=== PATIENT | female | born 1980 | race Caucasian/White ===

== ENCOUNTER 2019-01-21 08:47 | Inpatient (IN) | payer OTHER, MEDICAID ==
[~2019-01-21] VITALS: Ht 172.7 cm; Wt 61.7 kg
[2019-01-21 09:22] LABS: BASOPHILS % (AUTO) 0.7 % (0.0-2.0); EOSINOPHILS % (AUTO) 0.8 % (1.0-6.0); HEMATOCRIT 39.3 % (36-46); HEMOGLOBIN 13.2 g/dL (12.0-16.0); LYMPHOCYTES # (AUTO) 1.8 K/uL (1.0-4.8); LYMPHOCYTES % (AUTO) 25.5 % (22.0-44.0); MEAN CORPUSCULAR HEMOGLOBIN 29.2 pg (26.0-34.0); MEAN CORPUSCULAR HGB CONC 33.7 G/dL (31.0-37.0); MEAN CORPUSCULAR VOLUME 87 fL (80-100); MONOCYTES # (AUTO) 0.7 K/uL (0.1-1.0); MONOCYTES % (AUTO) 9.2 % (2.0-9.0); NEUTROPHILS # (AUTO) 4.6 K/uL (1.8-7.7); NEUTROPHILS % (AUTO) 63.8 % (40.0-70.0); PLATELET COUNT (AUTO) 234 K/uL (150-450); RED BLOOD CELL COUNT(AUTO) 4.54 MIL/uL (4.00-5.20); RED CELL DISTRIBUTION WIDTH 13.5 % (11.5-14.5)
[2019-01-21] MEDS ORDERED: DICY20 PO (09:23)
[2019-01-21] MEDS ORDERED: TOLT2TAB2 PO (09:23)
[2019-01-21] MEDS ORDERED: OXYB5 PO (09:23)
[2019-01-21] MEDS ORDERED: OMEP20 PO (09:23)
[2019-01-21] MEDS ORDERED: GABA-533 PO (09:23)
[2019-01-21] MEDS ORDERED: BACL10TA PO (09:23)
[2019-01-21] MEDS ORDERED: DIVA-78 PO (09:23)
[2019-01-21] MEDS ORDERED: MOME13HF2 IH (09:23)
[2019-01-21] MEDS ORDERED: ALBU8HFA IH (09:23)
[2019-01-21] MEDS ORDERED: LEVE250T55 PO (09:23)
[2019-01-21 09:38] LABS: ANION GAP 9 mmol/L (8-16); CALCIUM, TOTAL 8.9 mg/dL (8.8-10.5); CARBON DIOXIDE 28 mmol/L (22-29); CHLORIDE 105 mmol/L (98-107); CREATININE 0.63 mg/dL (0.60-1.30); GLOMERULAR FILTR. RATE CALC > 60 mL/min (>60); GLUCOSE,RANDOM 85 mg/dL (70-110); POTASSIUM 3.4 mmol/L (3.5-5.1); SODIUM SERUM 142 mmol/L (136-145); UREA NITROGEN, BLOOD 14 mg/dL (7-18)
[2019-01-21 09:50] LABS: ALANINE AMINOTRANSFERASE 131 U/L (12-78); ALBUMIN 3.3 g/dL (3.4-5.0); ALKALINE PHOSPHATASE 49 U/L (46-116); ASPARTATE AMINOTRANSFERASE 517 U/L (15-37); HCG,QUANTITATIVE < 1 mIU/mL (0-6); TOTAL PROTEIN, SERUM 6.6 g/dL (6.4-8.2)
[2019-01-21 10:25] LABS: VALPROIC ACID 36 mcg/mL (50-100)
[2019-01-21] MEDS ORDERED: QUEtiapine FUMARATE 100 MG TABLET PO ONE (11:00)
[2019-01-21] MEDS ORDERED: POTASSIUM CHLORIDE 20 MEQ ER TABLET PO ONE (11:15)
[2019-01-21] MEDS ORDERED: ZOLPIDEM TARTRATE 10 MG TABLET PO PRN (11:15)
[2019-01-21 13:24] LABS: AMPHET/METH SCREEN,URINE POSITIVE (NEGATIVE); BARBITURATE SCREEN, URINE NEGATIVE (NEGATIVE); BENZODIAZEPINES SCREEN,URINE NEGATIVE (NEGATIVE); CANNABINOID SCREEN,URINE POSITIVE (NEGATIVE); COCAINE SCREEN,URINE NEGATIVE (NEGATIVE); METHADONE SCREEN, URINE NEGATIVE (NEGATIVE); OPIATE SCREEN,URINE NEGATIVE (NEGATIVE)
[2019-01-21 13:26] LABS: PHENCYCLIDINE SCREEN,URINE NEGATIVE (NEGATIVE)
[2019-01-21 19:13] VITALS: BP 111/61
[2019-01-21] MEDS: LevETIRAcetam 250 MG TABLET PO SCH ×2 (19:15→22:22)
[2019-01-21] MEDS ORDERED: IBUPROFEN 400 MG TABLET PO PRN (19:15)
[2019-01-21] MEDS ORDERED: MAGNESIUM HYDROXIDE SUSPENSION 30 ML UDCUP PO PRN (19:15)
[2019-01-21] MEDS ORDERED: LOPERAMIDE HCL 2 MG CAPSULE PO PRN (19:15)
[2019-01-21] MEDS ORDERED: GuaiFENesin/D-METHORPHAN [SUGAR-FREE] 200-20MG/10 ML SYRUP UDCUP PO PRN (19:15)
[2019-01-21] MEDS ORDERED: CloNIDine HCL 0.1 MG TABLET PO PRN (19:15)
[2019-01-21] MEDS ORDERED: PETROLATUM,WHITE 28 GM JELLY TP PRN (19:15)
[2019-01-21] MEDS ORDERED: ACETAMINOPHEN 325 MG TABLET PO PRN (19:15)
[2019-01-21] MEDS ORDERED: ONDANSETRON HCL 4 MG TABLET PO PRN (19:15)
[2019-01-21] MEDS ORDERED: NICOTINE 14 MG/24 HOUR PATCH TD PRN (19:15)
[2019-01-21] MEDS ORDERED: DOCUSATE SODIUM 100 MG CAPSULE PO PRN (19:15)
[2019-01-21] MEDS ORDERED: MAG HYDROX/AL HYDROX/SIMETH ES 30 ML SUSPENSION UDCUP PO PRN (19:15)
[2019-01-21] MEDS ORDERED: ALBUTEROL SULFATE HFA 90 MCG/PUFF 8 GM INHALER IH PRN (19:15)
[2019-01-22 07:11] LABS: BASOPHILS % (AUTO) 0.8 % (0.0-2.0); HEMATOCRIT 39.7 % (36-46); HEMOGLOBIN 13.1 g/dL (12.0-16.0); LYMPHOCYTES # (AUTO) 1.7 K/uL (1.0-4.8); LYMPHOCYTES % (AUTO) 22.4 % (22.0-44.0); MEAN CORPUSCULAR HEMOGLOBIN 29.1 pg (26.0-34.0); MEAN CORPUSCULAR HGB CONC 33.1 G/dL (31.0-37.0); MEAN CORPUSCULAR VOLUME 88 fL (80-100); MONOCYTES # (AUTO) 0.6 K/uL (0.1-1.0); NEUTROPHILS # (AUTO) 5.2 K/uL (1.8-7.7); NEUTROPHILS % (AUTO) 66.8 % (40.0-70.0); PLATELET COUNT (AUTO) 220 K/uL (150-450); RED BLOOD CELL COUNT(AUTO) 4.51 MIL/uL (4.00-5.20); RED CELL DISTRIBUTION WIDTH 13.6 % (11.5-14.5)
[2019-01-22 07:30] LABS: HEMOGLOBIN A1C 5.4 % (4.5-6.2)
[2019-01-22 07:35] LABS: ALANINE AMINOTRANSFERASE 102 U/L (12-78); ALBUMIN 3.1 g/dL (3.4-5.0); ALKALINE PHOSPHATASE 47 U/L (46-116); ANION GAP 4 mmol/L (8-16); ASPARTATE AMINOTRANSFERASE 273 U/L (15-37); BILIRUBIN,TOTAL 0.5 mg/dL (0.1-1.0); CALCIUM, TOTAL 9.1 mg/dL (8.8-10.5); CARBON DIOXIDE 32 mmol/L (22-29); CHLORIDE 109 mmol/L (98-107); CHOL/HDL RATIO 3.3 (3.9-5.7); CHOLESTEROL 169 mg/dL (131-200); CREATININE 0.69 mg/dL (0.60-1.30); GLOMERULAR FILTR. RATE CALC > 60 mL/min (>60); GLUCOSE,RANDOM 79 mg/dL (70-110); HDL CHOLESTEROL 52 mg/dL (40-60); LDL CHOL (CALC.) 106 mg/dL (0-130); POTASSIUM 4.3 mmol/L (3.5-5.1); SODIUM SERUM 145 mmol/L (136-145); THYROID STIMULATING HORMONE 0.93 uIU/mL (0.36-3.74); TOTAL PROTEIN, SERUM 5.9 g/dL (6.4-8.2); TRIGLYCERIDES 55 mg/dL (15-150); UREA NITROGEN, BLOOD 19 mg/dL (7-18)
[2019-01-22 08:15] VITALS: BP 106/66
[2019-01-22] MEDS: LORazepam 2 MG TABLET PO PRN ×2 (08:59→16:03)
[2019-01-22] MEDS: LevETIRAcetam 250 MG TABLET PO SCH ×2 (08:59→16:04)
[2019-01-22] MEDS ORDERED: MOMETASONE IH SCH (09:00)
[2019-01-22] MEDS: BACLOFEN 10 MG TABLET PO SCH ×3 (09:00→16:04)
[2019-01-22] MEDS ORDERED: FORMOTEROL IH SCH (09:00)
[2019-01-22] MEDS: OMEPRAZOLE 20 MG CAPSULE PO SCH ×2 (10:03→16:03)
[2019-01-22] MEDS: OXYBUTYNIN CHLORIDE 5 MG TABLET PO SCH ×2 (10:03→16:04)
[2019-01-22] MEDS: GABAPENTIN 400 MG CAPSULE PO SCH ×2 (12:39→16:04)
[2019-01-22] MEDS: DIVALPROEX SODIUM 500 MG ER TABLET PO SCH (12:39)
[2019-01-22] MEDS: OLANZapine 5 MG TABLET PO SCH (16:03)
[2019-01-22] MEDS: TOLTERODINE TARTRATE 2 MG TABLET PO SCH (16:03)
[2019-01-22 16:24] VITALS: BP 107/60
[2019-01-23 06:46] VITALS: BP 113/64
[2019-01-23 08:15] VITALS: BP 116/71
[2019-01-23] MEDS: LevETIRAcetam 250 MG TABLET PO SCH ×2 (08:54→17:15)
[2019-01-23] MEDS: OXYBUTYNIN CHLORIDE 5 MG TABLET PO SCH ×2 (08:54→17:15)
[2019-01-23] MEDS: OMEPRAZOLE 20 MG CAPSULE PO SCH ×2 (08:54→17:15)
[2019-01-23] MEDS: DIVALPROEX SODIUM 500 MG ER TABLET PO SCH ×2 (08:54→20:36)
[2019-01-23] MEDS: TOLTERODINE TARTRATE 2 MG TABLET PO SCH (08:54)
[2019-01-23] MEDS: GABAPENTIN 400 MG CAPSULE PO SCH ×3 (08:54→17:16)
[2019-01-23] MEDS: OLANZapine 5 MG TABLET PO SCH ×2 (08:54→17:15)
[2019-01-23] MEDS: BACLOFEN 10 MG TABLET PO SCH ×3 (08:55→17:15)
[2019-01-23 16:13] VITALS: BP 104/58
[2019-01-23] MEDS: QUEtiapine FUMARATE 100 MG TABLET PO PRN (17:33)
[2019-01-24 06:09] VITALS: BP 115/69
[2019-01-24 08:19] VITALS: BP 124/66
[2019-01-24] MEDS: DIVALPROEX SODIUM 500 MG ER TABLET PO SCH ×2 (09:15→20:43)
[2019-01-24] MEDS: BACLOFEN 10 MG TABLET PO SCH ×3 (09:15→16:41)
[2019-01-24] MEDS: LevETIRAcetam 250 MG TABLET PO SCH ×2 (09:15→16:40)
[2019-01-24] MEDS: GABAPENTIN 400 MG CAPSULE PO SCH ×3 (09:15→16:40)
[2019-01-24] MEDS: OMEPRAZOLE 20 MG CAPSULE PO SCH ×2 (09:15→16:41)
[2019-01-24] MEDS: OXYBUTYNIN CHLORIDE 5 MG TABLET PO SCH ×2 (09:16→16:40)
[2019-01-24] MEDS: OLANZapine 5 MG TABLET PO SCH ×2 (09:16→16:40)
[2019-01-24] MEDS: TOLTERODINE TARTRATE 2 MG TABLET PO SCH (09:17)
[2019-01-24 11:35] LABS: GLUCOMETER DEV NAME(LOC) BV3S.; GLUCOSE,POINT OF CARE 115 MG/DL (70-110)
[2019-01-24 16:15] VITALS: BP 132/60
[2019-01-24] MEDS: QUEtiapine FUMARATE 100 MG TABLET PO PRN (20:43)
[2019-01-25 06:38] VITALS: BP 133/63
[2019-01-25 08:25] VITALS: BP 120/74
[2019-01-25] MEDS: DIVALPROEX SODIUM 500 MG ER TABLET PO SCH (08:51)
[2019-01-25] MEDS: OXYBUTYNIN CHLORIDE 5 MG TABLET PO SCH (08:52)
[2019-01-25] MEDS: TOLTERODINE TARTRATE 2 MG TABLET PO SCH (08:52)
[2019-01-25] MEDS: BACLOFEN 10 MG TABLET PO SCH ×2 (08:52→11:55)
[2019-01-25] MEDS: LevETIRAcetam 250 MG TABLET PO SCH (08:52)
[2019-01-25] MEDS: OMEPRAZOLE 20 MG CAPSULE PO SCH (08:52)
[2019-01-25] MEDS: OLANZapine 5 MG TABLET PO SCH (08:52)
[2019-01-25] MEDS: GABAPENTIN 400 MG CAPSULE PO SCH ×2 (08:52→11:55)
[2019-01-25] MEDS ORDERED: OLAN5TAB2 PO (11:52)
[2019-01-25] MEDS ORDERED: DIVA250T4 PO (11:52)
== END 2019-01-25 12:40 | disposition home or self-care (01) | DRG 885 ==
LOC: EMS 08:50 → B3A 17:03 → 3EC 17:21 → UNDOADMIN 17:21
PROVIDERS: ADMIT Psychiatry & Neurology Child & Adolescent Psychiatry; ATTEND Psychiatry & Neurology Child & Adolescent Psychiatry
DX: F25.0 Schizoaffective disorder, bipolar type (principal); R45.851 Suicidal ideations; E87.6 Hypokalemia; F12.90 Cannabis use, unspecified, uncomplicated; F17.210 Nicotine dependence, cigarettes, uncomplicated; G40.909 Epilepsy, unspecified, not intractable, without status epilepticus; J45.909 Unspecified asthma, uncomplicated; F19.10 Other psychoactive substance abuse, uncomplicated; K21.9 Gastro-esophageal reflux disease without esophagitis; F15.90 Other stimulant use, unspecified, uncomplicated; R32 Unspecified urinary incontinence; Z91.5 Personal history of self-harm; Z88.0 Allergy status to penicillin; Z88.8 Allergy status to other drugs, medicaments and biological substances
CPT/HCPCS: 80074; 83036; 84443; G0480